=== PATIENT | female | born 1960 | race Two or more races ===

== ENCOUNTER → 2025-01-06 | Day surgery (SDC) | payer OTHER, MEDICAID ==
[2025-01-04 11:35] LABS: Urine Bacteria None Seen /hpf (None Seen)
[2025-01-04 11:57] LABS: Basophils # (auto) 0.1 10 ^3/uL (0-0.2); Basophils % (auto) 0.7 % (0.0-2.0); Eosinophils # (auto) 0.3 10 ^3/uL (0-0.8); Eosinophils % (auto) 4.1 % (0.0-7.0); Hematocrit 42.5 % (36.0-46.0); Lymphocytes # (auto) 2.5 10 ^3/uL (0.4-5.4); Lymphocytes % (auto) 29.4 % (10.0-50.0); Mean Corpuscular Hemoglobin 29.3 pg (28.0-32.0); Monocytes # (auto) 0.4 10 ^3/uL (0-1.3); Monocytes % (auto) 5.2 % (0.0-12.0); Neutrophils # (auto) 5.1 10 ^3/uL (1.6-8.6); Neutrophils % (auto) 60.6 % (37.0-80.0); Platelet Count (auto) 283 10^3/uL (140-450); Red Blood Cells 4.78 10^6/uL (4.0-5.20); Red Cell Distribution Width 13.7 % (11.8-14.3); White Blood Cell 8.5 10^3/uL (4.4-10.8)
[2025-01-04 12:21] LABS: INR 0.81 (0.9-1.15); Partial Thromboplastin Time 21.7 SEC (24.5-34.5); Prothrombin Time 8.8 sec (9.3-11.8)
[2025-01-04 12:41] LABS: Urine Blood Negative /uL (Negative); Urine Clarity Clear (Clear); Urine Color Colorless (Yellow); Urine Protein, UAD Negative (Negative); Urine Specific Gravity 1.011 (1.001-1.035); Urine Squamous Epithelial Cell None Seen /hpf (<5); Urine Urobilinogen Normal (Negative); Urine WBC 2 /HPF (0-5)
[2025-01-04 12:49] LABS: Alanine Aminotransferase 12 U/L (7-40); Albumin 4.7 g/dL (3.2-4.8); Alkaline Phosphatase 92 U/L (46-116); Anion Gap 11 (5-15); Aspartate Aminotransferase 20 U/L (13-40); Bilirubin, Total 0.5 mg/dL (0.2-1.0); Blood Urea Nitrogen 12 mg/dL (9-23); Calcium 10.1 mg/dL (8.7-10.4); Carbon Dioxide 25 mmol/L (20-31); Chloride 103 mmol/L (98-107); Glucose 97 mg/dL (74-106); Potassium 4.2 mmol/L (3.5-5.1); Sodium 139 mmol/L (136-145); Total Protein 7.7 g/dL (5.7-8.2)
[~2025-01-06] VITALS: Ht 157.5 cm; Wt 68.0 kg
[~2025-01-06] MED LIST: DexAMETHasone SOD PHOS 10MG/1ML VIAL INJ ONE; HYDROmorphone HCL 2 MG/ML VL/or syr IV PRN; MEPERIDINE HCL (25 MG/ML) 1ML VIAL IV PRN; ONDANSETRON HCL 4 MG/2 ML VIAL IV ONE; ONDANSETRON HCL 4 MG/2 ML VIAL ONE; PROPOFOL 10 MG/ML 20 ML IV ONE; ceFAZolin 2 GM/D5W100ml 100 ML IV ONE; fentaNYL CITRATE 100 MCG/2 ML VL ONE
[2025-01-06] MEDS: BUPIVACAINE 0.5% P/F INJ 10 ML VIAL ONE (10:20)
[2025-01-06 10:43] VITALS: PULSE 104; RESP 19; TEMP 98.6; O2SAT 97
--- NOTE | 2025-01-06 11:00 | DVHOP2 ---
Operative Report - 2 Report Details Date: 01/06/25 Preop Diagnosis: 1. Left foot neuroma 2. Left foot pain Postop Diagnosis: Left foot neuroma Surgeon: Ranjit Ni MD Anesthesiologist: See anesthesia Anesthesia: General Consent: The patient was informed of the risks and benefits of the procedure. These include but are not limited to complications of anesthesia, postoperative infection, incomplete relief of symptoms, recurrence of symptoms, damage to blood vessels, nerves and tendons, deep venous thrombosis, pulmonary embolism and possible need for repeat surgery in the future. Complications: None Estimated Blood Loss: Minimal Fluids: See anesthesia Findings: Consistent with diagnosis Indications for Surgery: Worsening left foot pain Name of Procedure Performed 1. Left foot neuroma excision (00238) Procedure Details Procedure Details: PRE-PROCEDURE INFORMATION: In the pre-op holding area, the extremity to be o perated on was clearly marked and the patient verified correct laterality of the marking. The patient was transferred to the OR table and placed in a supine position. A timeout was performed in which identification of the correct patient, procedure, location, and materials was done. The left foot and leg were prepped and draped in normal sterile fashion. The foot and leg were exsan guinated and the left ankle Esmarch. DESCRIPTION OF PROCEDURE: Attention was directed to the left foot where linear incision was made at the dorsal 3rd interspace. Care was taken throughout the dissection to avoid damage to the neurovascular and tendinous structures. Hemostasis was achieved via electrocautery. The incision was deepened through blunt dissection to the level of the deep transverse intermetatarsal ligament. Once the ligament was visualized it was transected using dissecting scissors, effectively decompressing the underlying plantar nerve. This allowed visualization of the plantar nerve, which revealed that there was a neuroma of the plantar nerve with hourglass and severe fibrosis of the perineum noted. The nerve was dissected proximally and was transected. The neuroma was removed and sent to pathology. All surgical wounds were irrigated copiously with saline and closed in layers with the aforementioned suture material. A dry sterile dressing was placed on the surgical extremity. The patient was placed in a postop shoe POSTOPERATIVE INFORMATION: The patient tolerated the above noted procedure and anesthesia well and was transferred to the PACU with vital signs stable, and vascular status intact with capillary refill intact to all digits. Postoperative instructions reviewed in detail with the patient with written instructions provided. Patient will return to clinic in approximately 10-14 days for first postoperative visit. Patient has the number of the clinic and was instructed to call prior to that time should any problems, questions, or concerns arise. Specimen: Left foot neuroma Condition Good Disposition Home RANJIT NI DPM Jan 06, 2025 11:00
[2025-01-06] MEDS: ACETAMINOPHEN IV 1000 MG/100ML (10MG/ML) IV PRN (11:11)
[2025-01-06 11:38] VITALS: BP 120/65; PULSE 75; RESP 12; O2SAT 94
== END | disposition home or self-care (01) ==
LOC: SUR 08:56
PROVIDERS: ATTEND Podiatrist
DX: G57.63 Lesion of plantar nerve, bilateral lower limbs (principal); Q66.70 Congenital pes cavus, unspecified foot; M79.672 Pain in left foot; I10 Essential (primary) hypertension; E11.9 Type 2 diabetes mellitus without complications; Z79.899 Other long term (current) drug therapy; Z98.890 Other specified postprocedural states
CPT/HCPCS: 28080; 36415; 80053; 81001; 82962; 85025; 85610; 85730; 88305; J1100; J2405; J2704; J3010; J3490; L3260; J0131

== ENCOUNTER 2025-01-17 11:22 | Emergency (ER) | payer OTHER, MEDICAID ==
[~2025-01-17] VITALS: Ht 157.5 cm; Wt 66.4 kg
[2025-01-17 11:43] VITALS: BP 115/59; PULSE 99; RESP 16; TEMP 97.8; O2SAT 96
--- NOTE | 2025-01-17 11:45 | ED.PDOC ---
History of Present Illness HPI Comments 64 year old female presents to the ED with a chief complaint of wound check onset today (01/17/25). Patient states she had LT foot surgery on 01/08/25, took a shower today and noticed dressing was wet. Patient states she was told by surgeon to not remove dressing, came to ED for wound check and change of maxime ssing. She has a follow-up appointment with surgeon on 01/21/25. Rates LT foot pain 12/14. PMHx DM, HTN. Denies fever, chills, nausea, vomiting. No other symptoms or modifying factors present at this time. Time Seen by MD: 11:34 Reviewed Notes: Medications, Allergies Allergies: Coded Allergies: NO KNOWN ALLERGIES (Unverified , 01/06/25) Information Source: Patient Mode of Arrival: Ambulatory Severity: Moderate Timing: Hours Duration: Since onset Prehospital treatment: None Past Medical History PAST MEDICAL HISTORY: DM, HTN Surgical History: Cholecystectomy MANAGER OF ADMINISTRATION History: No Pertinent MANAGER OF ADMINISTRATION History Family History Family History: Reviewed,noncontributory to illness, No family hx of Cancer, No family hx of DM, No family hx of Heart reyes, No family hx of HTN, No family hx ofKidney reyes, No family hx of Liver reyes, No family hx of Lung reyes, No family hx of Stroke Social History Smoker: Non-Smoker Alcohol: Denies ETOH Use Drugs: Denies Drug Use Lives In: Home Constitutional: denies: chills, diaphoresis, fatigue, fever, malaise, sweats, weakness, others EENTM: denies: blurred vision, double vision, ear bleeding, ear discharge, ear drainage, ear pain, ear ringing, eye pain, eye redness, hearing loss, mouth pain, mouth swelling, nasal discharge, nose bleeding, nose congestion, nose pain, photophobia, tearing, throat pain, throat swelling, voice changes, others Respiratory: denies: cough, hemoptysis, orthopnea, SOB at rest, shortness of breath, SOB with excertion, stridor, wheezing, others Cardiovascular: denies: chest pain, dizzy spells, diaphoresis, Dyspnea on exertion, edema, irregular heart beat, left arm pain, lightheadedness, palpitations, PND, syncope, others Gastrointestinal: denies: abdomen distended, abdominal pain, blood streaked bowels, constipated, diarrhea, dysphagia, difficulty swallowing, hematemesis, melena, nausea, poor appetite, poor fluid intake, rectal bleeding, rectal pain, vomiting, others Genitourinary: denies: abnormal vagina bleeding, burning, dyspareunia, dysuria, flank pain, frequency, hematuria, incontinence, pain, , vagina discharge, urgency, others Neurological: denies: dizziness, fainting, headache, left sided numbness, left sided weakness, numbness, paresthesia, pre-existing deficit, right sided numbness, right sided weakness, seizure, speech problems, tingling, tremors, weakness, others Musculoskeletal: reports: others (LT foot wound check); denies: back pain, gout, joint pain, joint swelling, muscle pain, muscle stiffness, neck pain Integumetry: denies: bruises, change in color, change in hair/nails, dryness, laceration, lesions, lumps, rash, wounds, others Allergic/Immunocompromised: denies: Difficulty Healing, Frequent Infections, Hives, Itching, others Hematologic/Lymphatic: denies: anemia, blood clots, easy bleeding, easy bruising, swollen glands, others Endocrine: denies: excessive hunger, excessive sweating, excessive thirst, excessive urination, flushing, intolerance to cold, intolerance to heat, unexplained weight gain, unexplained weight loss, others Psychiatric: denies: anxiety, bipolar disorder, depression, hopeless, panic d isorder, schizophrenia, sleepless, suicidal, others All Other Systems: Reviewed and Negative Physical Exam General Appearance: No Apparent Distress HEENT: Normal ENT Inspection, Pharynx Normal, TMs Normal Neck: Full Range of Motion, Non-Tender, Normal, Normal Inspection Respiratory: Chest Non-Tender, Lungs Clear, No Accessory Muscle Use, No Respiratory Distress, Normal Breath Sounds Cardiovascular: No Edema, No JVD, No Murmur, No Gallop, Normal Peripheral Pulses, Regular Rate/Rhythm Breast Exam: Deferred Gastrointestinal: No Organomegaly, Non Tender, No Pulsatile Mass, Normal Bowel Sounds, Soft Genitalia: Deferred Pelvic: Deferred Rectal: Deferred Extremities: No calf tenderness, Normal capillary refill, No pedal edema, Other (Left foot with sutures in place. There is no sign of any drainage and no sign of any redness. The area is nontender to palpation. ) Musculoskeletal : Apperance: Normal Neurologic: Alert, neck cutter II-XII nml as Tested, No Motor Deficits, Normal Affect, Normal Mood, No Sensory Deficits Cerebellar Function: Normal Reflexes: Normal Skin: Dry, Normal Color, Warm Lymphatic: No Adenopathy Was a procedure done? Was a procedure done?: No Differential Dx Considerations may include: Left foot surgery, abscess, X-Ray, Labs, Meds, VS The patient was being discharged We are sending a referral for a follow up appointment tomorrow for the quantitative equity head The patient was redressed and is being discharged at this time. Time of 1ST Reevaluation: 12:04 Reevaluation 1ST: Unchanged Patient Education/Counseling: Diagnosis, Treatment, Prognosis, Need For Follow Up Family Education/Counseling: No Family Present Departure 1 Departure Time of Disposition: 11:45 Impression: Primary Impression: Status post left foot surgery Additional Impression: Encounter for post surgical wound check Disposition: 01 HOME / SELF CARE / HOMELESS Condition: Fair Discharged With: Self Critical Care Note Critical Care Time?: No Stability Stability form required: No Heart Score Heart Score: Heart Score Response (Comments) Value History N/A 0 EKG N/A 0 Age N/A 0 Risk Factors N/A 0 Troponin N/A 0 Total 0 I personally scribed for VICENTE DOSHI MD ([email or web address]) on 01/17/25 at 11:45. Electronically submitted by Mariel Berrios ([email or web address]). VICENTE DOSHI MD Jan 17, 2025 11:45
== END 2025-01-17 12:29 | disposition home or self-care (01) ==
LOC: ER 11:22
DX: Z48.817 Encounter for surgical aftercare following surgery on the skin and subcutaneous tissue (principal); E11.9 Type 2 diabetes mellitus without complications; I10 Essential (primary) hypertension; Z90.49 Acquired absence of other specified parts of digestive tract